=== PATIENT | female | born 1990 | race Caucasian/White ===

== ENCOUNTER 2022-01-28 15:50 | Emergency (ER) | payer OTHER ==
[~2022-01-28] VITALS: Ht 157.5 cm; Wt 77.1 kg
--- NOTE | 2022-01-28 15:51 | NUR ---
MD at bedside, medical screening exam in progress.
[2022-01-28] MEDS ORDERED: LORAZEPAM 0.5 MG TABLET PO ONE (16:00)
[2022-01-28] MEDS ORDERED: LORAZEPAM 0.5 MG TABLET ONE (16:03)
[2022-01-28] MEDS ORDERED: LORA-258 PO (16:04)
[2022-01-28] MEDS ORDERED: LIDOCAINE VISCUS 2% 15 ML UDC ONE (16:28)
[2022-01-28] MEDS ORDERED: MAG HYDROX/AL HYDROX/SIMETH 30 ML LIQUID UDC ONE (16:28)
[2022-01-28] MEDS ORDERED: LIDOCAINE VISCUS 2% 15 ML UDC MM ONE (16:30)
[2022-01-28] MEDS ORDERED: MAG HYDROX/AL HYDROX/SIMETH 30 ML LIQUID UDC PO ONE (16:30)
--- NOTE | 2022-01-28 16:34 | NUR ---
PT MEDICATED PER MD ORDERS. DR ARIAS AT BEDSIDE FOR FURTHER EVAL PER PT"S REQUEST.
[2022-01-28 16:59] VITALS: BP 126/80
--- NOTE | 2022-01-28 16:59 | NUR ---
Patient discharged to home in stable condition. Written and verbal after care instructions given. Patient verbalizes understanding of instructions. Stressed follow up or return to ER for worsening s/s. Instructed not to drive.
== END 2022-01-28 17:01 | disposition home or self-care (01) ==
LOC: ER 15:51
DX: F41.9 Anxiety disorder, unspecified (principal); R14.1 Gas pain; Z88.0 Allergy status to penicillin
CPT/HCPCS: A4663